=== PATIENT | male | born 1965 | race Caucasian/White ===

== ENCOUNTER 2021-03-12 07:06 | Outpatient (CLI) | payer BC, SELFPAY ==
--- NOTE | 2021-03-12 07:14 | CT_ITS ---
WS: [id number] CT PARANASAL SINUSES HISTORY: ALLERGIC rhinitis, CHRONIC SINUSITIS TECHNIQUE: Contiguous 2.5 mm axial images obtained through the sinuses. Images are reconstructed in s agittal and coronal planes. All CT scans at [facility] use at least one of these dose opt imization techniques: automated exposure control; mA and/or kV adjustment per patient size (includes targeted exams where dose is matched to clinical indication); or iterative reconstruction. DLP: 562.34 mGy.cm COMPARISON: 05/07/2019 Frontal sinuses: Clear. Sphenoid sinus: Clear. Ethmoid sinuses: Clear. Maxillary sinus: Clear. Previously described opacification in the RIGHT maxillary sinus is no longer present. There is mild dehiscence involving the lateral wall the LEFT maxillary sinus. This was also present on the prior study. There is very slight medial displacement of the fat within the masseter s pace into the sinus but unchanged. No acute inflammation. Ostiomeatal unit: Very small amount of increased mucoperiosteal thickening in the RIGHT ostiomeatal u nit. Near complete obstruction. LEFT ostiomeatal unit is clear. Orbits and globes are normal. CT/CT sinus wo con* [id number] IMPRESSION: 1. Resolved RIGHT maxillary sinus opacification since 05/07/2019. 2. There is no evidence for sinusitis or polyposis. 3. Mild mucoperiosteal thickening at the RIGHT ostiomeatal unit but no obstruc tion.
== END 2021-03-12 07:07 | disposition home or self-care (01) ==
PROVIDERS: PCP Electrodiagnostic Medicine; Visit Provider Electrodiagnostic Medicine
DX: J30.9 Allergic rhinitis, unspecified (principal); J32.9 Chronic sinusitis, unspecified
CPT/HCPCS: 70486

== ENCOUNTER 2022-12-28 09:30 | Oncology outpatient (recurring) (ONCR) | payer OTHER, SELFPAY ==
[2022-12-28 10:54] LABS: Basophils # 0.1 10^3/uL (0.0-0.1); Basophils % 0.9 %; Eosinophils # 0.4 10^3/uL (0.0-0.8); Eosinophils % 4.7 %; Hematocrit 51.9 % (42.0-52.0); Hemoglobin 17.4 g/dL (11.7-16.6); Lymphocytes # 2.4 10^3/uL (0.8-4.8); Mean Corpuscular HGB Conc 33.5 g/dL (30.0-36.0); Mean Corpuscular Hemoglobin 30.9 pg (28.0-34.0); Mean Platelet Volume 10.2 fL (7.4-10.4); Monocytes # 0.7 10^3/uL (0.2-0.9); Monocytes % 9.2 %; Neutrophils # 3.95 10^3/uL (1.8-7.7); Neutrophils % 53.1 %; Nucleated Red Blood Cells % 0 %; Platelet Count 244 10^3/cmm (130-400); Red Blood Count 5.64 10^6/uL (4.1-5.3); Red Cell Distribution Width 13.2 % (12.1-15.1); White Blood Count 7.5 10^3/uL (4.0-10.0)
[2022-12-28 11:01] LABS: Erythrocyte Sedimentation Rate 7 mm/hr (0-10)
[2022-12-28 11:26] LABS: LAB Peripheral Smear Sent for Review
[2022-12-28 11:36] LABS: Alanine Aminotransferase 19 U/L (0-41); Albumin Level 4.7 g/dL (3.5-5.2); Alkaline Phosphatase 58 U/L (40-130); Anion Gap 13.8 (5-19); Aspartate Amino Transferase 17 U/L (0-40); Blood Urea Nitrogen 14 mg/dL (6-20); Calcium 9.5 mg/dL (8.5-10.5); Carbon Dioxide 24 mmol/L (22-29); Chloride 105 mmol/L (98-107); Ferritin 200 ng/mL (30-400); Globulin 3.3 g/dL (1.3-4.6); Glucose 94 mg/dL (65-115); Iron 133 ug/dL (59-158); Lactate Dehydrogenase 135 U/L (135-225); Magnesium 1.9 mg/dL (1.7-2.3); Osmolality Calculated 288 mOsm/kg (285-295); Percent Saturation 45.7 % (20-50); Potassium 3.8 mmol/L (3.5-5.1); Sodium 139 mmol/L (136-145); Thyroid Stimulating Hormone 2.43 uIU/mL (0.27-4.20); Total Bilirubin 0.7 mg/dL (0.15-1.2); Total Iron Binding Capacity 291 mcg/dl; Unsaturated Iron Binding 158 ug/dL (112-347); Vitamin B12 466 pg/mL (232-1245)
[2022-12-28 12:04] LABS: Testosterone Total 357.1 ng/dL (193-740)
[2023-01-06 20:24] LABS: CALR Exon 9 Mutation NOT DETECTED (NOT DETECTED); CSF3R Exon 14/17 Mutation NOT DETECTED (NOT DETECTED); JAK2 Exon 12 Mutation NOT DETECTED (NOT DETECTED); JAK2 V617 Block Specimen ID NG; JAK2 V617 Clinical Indication NG; JAK2 V617 Mutation NOT DETECTED (NOT DETECTED); JAK2 V617 Specimen Source NG; MPL Exon 12 Mutation NOT DETECTED (NOT DETECTED)
== END 2023-01-15 23:59 | disposition home or self-care (01) ==
PROVIDERS: PCP Electrodiagnostic Medicine; Visit Provider Internal Medicine Medical Oncology
DX: M25.50 Pain in unspecified joint (principal); D75.1 Secondary polycythemia; R53.83 Other fatigue
CPT/HCPCS: 36415; 80053; 81270; 81279; 81339; 81479; 82607; 82728; 83540; 83550; 83615; 83735; 84403; 84443; 85025; 85651; 86140

== ENCOUNTER 2023-03-01 15:00 | Outpatient (CLI) | payer OTHER, SELFPAY | END 2023-03-01 15:01 | disposition home or self-care (01) | LOC: SLEEP 03-02 16:08 | PROVIDERS: PCP Electrodiagnostic Medicine; Visit Provider Electrodiagnostic Medicine | DX: G47.33 Obstructive sleep apnea (adult) (pediatric) (principal) | CPT/HCPCS: G0399 ==

== ENCOUNTER 2023-04-12 10:57 | Oncology outpatient (recurring) (ONCR) | payer OTHER, SELFPAY ==
[2023-04-12 11:28] VITALS: BP 115/77; PULSE 73; RESP 18; TEMP 36.5; O2SAT 96
[2023-04-12 11:52] LABS: Basophils % 0.6 %; Eosinophils # 0.3 10^3/uL (0.0-0.8); Eosinophils % 5.4 %; Hematocrit 50.5 % (42.0-52.0); Hemoglobin 16.9 g/dL (11.7-16.6); Lymphocytes # 1.2 10^3/uL (0.8-4.8); Lymphocytes % 19.1 %; Mean Corpuscular HGB Conc 33.5 g/dL (30.0-36.0); Mean Corpuscular Hemoglobin 31.4 pg (28.0-34.0); Mean Corpuscular Volume 93.7 fl (80-94); Mean Platelet Volume 10.1 fL (7.4-10.4); Monocytes # 0.3 10^3/uL (0.2-0.9); Monocytes % 5.4 %; Nucleated Red Blood Cells % 0 %; Platelet Count 225 10^3/cmm (130-400); Red Blood Count 5.39 10^6/uL (4.1-5.3); Red Cell Distribution Width 12.9 % (12.1-15.1); White Blood Count 6.2 10^3/uL (4.0-10.0)
[2023-04-12 12:32] LABS: Alanine Aminotransferase 20 U/L (0-41); Albumin Level 4.2 g/dL (3.5-5.2); Alkaline Phosphatase 63 U/L (40-130); Blood Urea Nitrogen 14 mg/dL (6-20); Calcium 8.9 mg/dL (8.5-10.5); Carbon Dioxide 23 mmol/L (22-29); Chloride 101 mmol/L (98-107); Globulin 3.2 g/dL (1.3-4.6); Glomerular Filtration Rate 87.3 mL/min (90-130); Glucose 177 mg/dL (65-115); Osmolality Calculated 283 mOsm/kg (285-295); Sodium 134 mmol/L (136-145); Total Bilirubin 0.8 mg/dL (0.15-1.2); Total Protein 7.4 g/dL (6.6-8.7)
[2023-04-12 12:33] LABS: Anion Gap 14.2 (5-19); Aspartate Amino Transferase 20 U/L (0-40); Potassium 4.2 mmol/L (3.5-5.1)
== END 2023-04-17 23:59 | disposition home or self-care (01) ==
PROVIDERS: Nurse Practitioner Family; PCP Electrodiagnostic Medicine; Visit Provider Internal Medicine Medical Oncology
DX: D75.1 Secondary polycythemia (principal)
CPT/HCPCS: 36415; 80053; 85025

== ENCOUNTER 2023-04-18 06:10 | Outpatient (CLI) | payer OTHER, SELFPAY ==
--- NOTE | 2023-04-18 06:30 | CT_ITS ---
WS: [id number] CT SINUSES TECHNIQUE: Noncontrast CT of the paranasal sinuses with coronal and sagittal reformatted images. CLINICAL INFORMATION: sinusitis COMPARISON: March 12, 2021 DLP: 373.[address] scans at [facility] use at least one of these dose optimization techniques: automated e xposure control; mA and/or kV adjustment per patient size (includes targeted exams where dose is matc hed to clinical indication); or iterative reconstruction. FINDINGS: Mild S-shaped nasal septal deviation measuring 2-3 mm. Ostiomeatal units are patent. Mild narrowing o f the ostiomeatal units bilaterally. Paranasal sinuses are well aerated. Mastoid air cells well aerat ed. Normal posterior nasopharynx. Normal parapharyngeal fat. Septation RIGHT frontal sinus. Frontal s inuses and frontal ethmoidal recesses are well aerated. Mild mucosal thickening in the ethmoid air ce lls. Sphenoid sinuses are well aerated. Maxillary sinuses are well aerated. CT/CT sinus wo con* [id number] IMPRESSION: 1. Mild S-shaped nasal septal deviation. 2. Mild mucosal thickening in the ethmoid air cells. Ostiomeatal units are pat ent with mild narrowing. 3. Mastoid air cells well aerated. 4. Paranasal sinuses are well aerated. 5. No acute sinusitis.
== END 2023-04-18 06:11 | disposition home or self-care (01) ==
PROVIDERS: PCP Electrodiagnostic Medicine; Visit Provider Otolaryngology
DX: J32.9 Chronic sinusitis, unspecified (principal); J34.2 Deviated nasal septum
CPT/HCPCS: 70486

== ENCOUNTER 2023-07-18 12:03 | Oncology outpatient (recurring) (ONCR) | payer OTHER, SELFPAY ==
[2023-07-18 12:15] VITALS: BP 129/76; PULSE 72; RESP 16; TEMP 36.6; O2SAT 97
[2023-07-18 12:25] LABS: Basophils # 0.1 10^3/uL (0.0-0.1); Basophils % 0.8 %; Eosinophils # 0.3 10^3/uL (0.0-0.8); Eosinophils % 3.9 %; Hematocrit 46.3 % (37-53); Lymphocytes # 1.7 10^3/uL (0.8-4.8); Lymphocytes % 22.9 %; Mean Corpuscular Volume 93.7 fl (82-101); Mean Platelet Volume 10.4 fL (7.4-10.4); Monocytes # 0.6 10^3/uL (0.2-0.9); Monocytes % 8.6 %; Neutrophils % 63.5 %; Nucleated Red Blood Cells % 0 %; Platelet Count 253 10^3/cmm (157-399); Red Blood Count 4.94 10^6/uL (3.85-5.65); Red Cell Distribution Width 13.1 % (12.1-15.1); White Blood Count 7.24 10^3/uL (3.29-11.43)
[2023-07-18 12:45] LABS: Alanine Aminotransferase 11 U/L (0-41); Albumin Level 4.3 g/dL (3.5-5.2); Alkaline Phosphatase 61 U/L (40-130); Anion Gap 12.6 (5-19); Aspartate Amino Transferase 13 U/L (0-40); Blood Urea Nitrogen 12 mg/dL (6-20); Carbon Dioxide 27 mmol/L (22-29); Chloride 104 mmol/L (98-107); Glucose 113 mg/dL (65-115); Osmolality Calculated 289 mOsm/kg (285-295); Potassium 4.6 mmol/L (3.5-5.1); Sodium 139 mmol/L (136-145); Total Bilirubin 0.7 mg/dL (0.15-1.2); Total Protein 7.3 g/dL (6.6-8.7)
== END 2023-07-18 23:59 | disposition home or self-care (01) ==
LOC: ONCMED 12:04
PROVIDERS: Nurse Practitioner Family; PCP Electrodiagnostic Medicine; Visit Provider Internal Medicine Medical Oncology
DX: D75.1 Secondary polycythemia (principal); R77.8 Other specified abnormalities of plasma proteins; Z79.899 Other long term (current) drug therapy
CPT/HCPCS: 36415; 80053; 85025

== ENCOUNTER 2023-08-31 18:39 | Emergency (ER) | payer OTHER, SELFPAY ==
[2023-08-31 18:44] VITALS: BP 139/94; PULSE 134; RESP 22; TEMP 39.6; O2SAT 94; BMI 30.1
[2023-08-31 19:00] VITALS: O2SAT 92
--- NOTE | 2023-08-31 19:13 | XRR_ITS ---
PROCEDURE INFORMATION: Exam: XR Chest Exam date and time: 08/31/2023 7:32 PM Age: 58 years old Clinical indication: Fever TECHNIQUE: Imaging protocol: Radiologic exam of the chest. Views: 1 view. COMPARISON: No relevant prior studies available. FINDINGS: Lungs: Unremarkable. No consolidation. Pleural spaces: Unremarkable. No pleural effusion. No pneumothorax. Heart/Mediastinum: Unremarkable. No cardiomegaly. Bones/joints: Unremarkable. XR/XR chest 1V portable [id number] IMPRESSION: No acute findings.
--- NOTE | 2023-08-31 19:15 | ED_ITS ---
HPI - COVID 2 General: Chief Complaint: COVID symptoms Stated Complaint: Weakness Time Seen by Provider: 08/31/23 19:05 History of Present Illness: Patient presents to the ER with complaints of fever shortness of breath starting about 5 PM this afternoon. Patient also reports body aches chills nasal congestion sinus pressure for over a week. Patient states last week he was tested negative for COVID and flu but then symptoms improved and they returned today. Patient presents to the ER with pulse of 134 beats a minute respirations of 22 and a temperature of 103.3. O2 sat of 94% on room air. COVID Results: 2 SARS-CoV-2 (PCR) Not detected (NOT DETECT) 08/31/23 19:29 Coronavirus Type 229E (PCR) Not detected (NOT DETECT) 08/31/23 19:29 Review of Systems 2 General: Reports: 10 or more systems reviewed and unremarkable except in HPI and below PFSH ED 2 PFSH: Medical History Testicle lump Anxiety and depression History of nephrolithiasis Androgen deficiency Obstructive sleep apnea Hypertension Ulcerative colitis Surgical History History of carpal tunnel release of both wrists History of total colectomy Family History Mother Cancer breast Father Cancer Prostate Other Anesthesia complication Diabetes Hyperlipidemia Hypertension Denies family history of CAD (coronary artery disease) Clotting disorder Dementia Psychiatric illness Chronic kidney disease (CKD) Suicide Bleeding disorder Lung disease Stroke Social History Smoking and tobacco/nicotine status: former use of tobacco/nicotine Quit status (tobacco/nicotine): has quit using Year quit tobacco: 2016 Former quit date comment: smoked x 15 years Alcohol intake: current Physical Exam 2 Const: COMMON NORMALS: no acute distress, average body habitus, patient oriented x3, no limitations, healthy appearing, alert and well nourished HENMT: COMMON NORMALS: normocephalic, atraumatic, hearing grossly normal bilaterally, external ears normal, Normal external nose present, moist oral mucous membranes and oropharynx normal HEAD & SCALP: normocephalic and atraumatic NOSE: Normal external nose present EXTERNAL EAR: Yes external ears normal Neck/C-Spine: COMMON NORMALS: full ROM, no lymphadenopathy, supple, no meningeal signs, no JVD and Thyroid normal THYROID: Thyroid normal Chest: COMMONS NORMALS: normal inspection of the chest and normal palpation of entire chest wall Resp: COMMON NORMALS: normal respiratory effort, No retractions, No use of accessory muscles and clear to auscultation bilaterally AUSCULTATION: clear to auscultation bilaterally Cardio: COMMON NORMALS: no JVD, regular rhythm, S1 normal heart sound present, S2 normal heart sound present, No gallops present (Cardio), No clicks present (Cardio), No murmurs present (Cardio) and No rub (Cardio); negative for regular rate (Tachycardic) RATE: abnormal rate (Tachycardic) RHYTHM: regular rhythm HEART SOUNDS: S1 normal heart sound present and S2 normal heart sound present GI: COMMON NORMALS: Normal to inspection, nondistended, normoactive bowel sounds present, Soft to palpation, non-tender, No hepatosplenomegaly present and no masses PALPATION: Yes Soft to palpation and Yes No hepatosplenomegaly present Neuro: COMMON NORMALS: patient oriented x3 SENSORIUM/ORIENTATION: Yes alert MENINGEAL SIGNS: Yes no meningeal signs Course 2 Vital Signs: Vital signs: Vital Signs Temperature 99.2 F 08/31/23 20:37 Pulse Rate 119 H 08/31/23 20:22 Respiratory Rate 22 H 08/31/23 20:22 Blood Pressure 155/95 08/31/23 20:22 Pulse Oximetry 92 08/31/23 20:22 Oxygen Delivery Me thod Room Air 08/31/23 19:00 [facility] - COVID Medical Decision Making Patient presented with cold and flulike symptoms. Lab work was obtained which was essentially unremarkable except respiratory panel did show positive for rhinovirus. Patient was bolused 2 L normal saline blood cultures were obtained. Patient's heart rate decreased from 1 34-97. Temperature decreased from 103.3- 99.2. Patient be discharged home to follow-up with his PCP on an as-needed basis. Lab Data 08/31/23 19:51 08/31/23 19:51 Radiology Impressions Chest X-Ray 08/31/23 19:13 IMPRESSION: No acute findings. Laboratory Results WBC 9.51 10^3/uL (3.29-11.43) 08/31/23 19:51 RBC 5.65 10^6/uL (3.85-5.65) 08/31/23 19:51 Hgb 17.20 g/dL (11.27-16.99) H 08/31/23 19:51 Hct 51.9 % (37-53) 08/31/23 19:51 MCV 91.9 fl (82-101) 08/31/23 19:51 MCH 30.4 pg (27-33) 08/31/23 19:51 MCHC 33.1 g/dL (30-55) 08/31/23 19:51 RDW 13.2 % (12.1-15.1) 08/31/23 19:51 Plt Count 205 10^3/cmm (157-399) 08/31/23 19:51 MPV 10.1 fL (7.4-10.4) 08/31/23 19:51 Neut % (Auto) 87.7 % 08/31/23 19:51 Lymph % (Auto) 3.7 % 08/31/23 19:51 Bowman % (Auto) 5.9 % 08/31/23 19:51 Eos % (Auto) 1.6 % 08/31/23 19:51 Baso % (Auto) 0.5 % 08/31/23 19:51 Neut # (Auto) 8.34 10^3/uL (1.8-7.7) H 08/31/23 19:51 Lymph # (Auto) 0.4 10^3/uL (0.8-4.8) L 08/31/23 19:51 Bowman # (Auto) 0.6 10^3/uL (0.2-0.9) 08/31/23 19:51 Eos # (Auto) 0.2 10^3/uL (0.0-0.8) 08/31/23 19:51 Baso # (Auto) 0.1 10^3/uL (0.0-0.1) 08/31/23 19:51 Nucleated RBC % (auto) 0 % 08/31/23 19:51 Nucleated RBCs # 0.0 /100WBC 08/31/23 19:51 Sodium 134 mmol/L (136-145) L 08/31/23 19:51 Potassium 4.2 mmol/L (3.5-5.1) 08/31/23 19:51 Chloride 101 mmol/L (98-107) 08/31/23 19:51 Carbon Dioxide 22 mmol/L (22-29) 08/31/23 19:51 Anion Gap 15.2 (5-19) 08/31/23 19:51 BUN 16 mg/dL (6-20) 08/31/23 19:51 Creatinine 1.1 mg/dL (0.7-1.2) 08/31/23 19:51 GFR Calculation 69.0 mL/min (90-130) L 08/31/23 19:51 Glucose 177 mg/dL (65-115) H 08/31/23 19:51 Calculated Osmolality 284 mOsm/kg (285-295) L 08/31/23 19:51 Lactic Acid 1.9 mmol/L (0.5-2.2) 08/31/23 19:51 Calcium 9.4 mg/dL (8.5-10.5) 08/31/23 19:51 Magnesium 1.5 mg/dL (1.7-2.3) L 08/31/23 19:51 Total Bilirubin 0.6 mg/dL (0.15-1.2) 08/31/23 19:51 AST 18 U/L (0-40) 08/31/23 19:51 ALT 18 U/L (0-41) 08/31/23 19:51 Alkaline Phosphatase 68 U/L (40-130) 08/31/23 19:51 Total Protein 7.7 g/dL (6.6-8.7) 08/31/23 19:51 Albumin 4.2 g/dL (3.5-5.2) 08/31/23 19:51 Globulin 3.5 g/dL (1.3-4.6) 08/31/23 19:51 Procalcitonin 0.90 ng/mL (0-0.5) H 08/31/23 19:51 Urine Color Yellow (Yellow) 08/31/23 19:45 Urine Appearance Clear (CLEAR) 08/31/23 19:45 Urine pH 5 (5-7) 08/31/23 19:45 Ur Specific [place] 1.015 (1.005-1.030) 08/31/23 19:45 Urine Protein Neg (Negative) 08/31/23 19:45 Urine Glucose (UA) Norm (Normal) 08/31/23 19:45 Urine Ketones Negative (Negative) 08/31/23 19:45 Urine Blood Neg (Negative) 08/31/23 19:45 Urine Nitrate Negative (Negative) 08/31/23 19:45 Urine Bilirubin Neg (Negative) 08/31/23 19:45 Urine Urobilinogen Norm mg/dL (Negative) 08/31/23 19:45 Ur Leukocyte Esterase Negative (Negative) 08/31/23 19:45 Nasal Influ A H1 2009 PCR Not detected (NOT DETECT) 08/31/23 19:29 Adenovirus (PCR) Not detected (NOT DETECT) 08/31/23 19: C. pneumoniae DNA (PCR) Not detected (NOT DETECT) 08/31/23 19: Coronavirus 229E (PCR) Not detected (NOT DETECT) 08/31/23 19:29 Human Metapneumovir PCR Not detected (NOT DETECT) 08/31/23 19:29 Influenza A (H1) PCR Not detected (NOT DETECT) 08/31/23 19:29 Influenza A (H3) PCR Not detected (NOT DETECT) 08/31/23 19:29 Influenza Type A (PCR) Not detected (NOT DETECT) 08/31/23 19: Influenza Type B (PCR) Not detected (NOT DETECT) 08/31/23 19:29 M. pneumoniae (PCR) Not detected (NOT DETECT) 08/31/23 19:29 Parainfluenza 1 (PCR) Not detected (NOT DETECT) 08/31/23 19:29 Parainfluenza 2 (PCR) Not detected (NOT DETECT) 08/31/23 19:29 Parainfluenza 3 (PCR) Not detected (NOT DETECT) 08/31/23 19:29 Parainfluenza 4 (PCR) Not detected (NOT DETECT) 08/31/23 19:29 RSV Type A (PCR) Not detected (NOT DETECT) 08/31/23 19:29 RSV Type B (PCR) Not detected (NOT DETECT) 08/31/23 19:29 Entero/Rhino (PCR) Detected (NOT DETECT) A 08/31/23 19:29 SARS-CoV-2 (PCR) Not detected (NOT DETECT) 08/31/23 19:29 2 SARS-CoV-2 (PCR) Not detected (NOT DETECT) 08/31/23 19:29 Coronavirus Type 229E (PCR) Not detected (NOT DETECT) 08/31/23 19:29 All radiology interpretation(s) finalized by discharge Discharge Plan Discharge Patient Disposition: Home Clinical Impression: Rhinovirus infection, Fever Condition: Stable Prescriptions: No Action sertraline 100 mg tablet 100 mg PO DAILY fluticasone propionate 50 mcg/actuation spray,suspension 2 spray intranasal DAILY Rx Instructions: administer into each nostril lisinopril 20 mg tablet 20 mg PO DAILY alprazolam 0.5 mg tablet 0.5 mg PO BID PRN OneLAX Daily Fiber 3.4 gram/6 gram powder PO BID loperamide 2 mg capsule 2 mg PO Q6H PRN acetaminophen [Tylenol] 325 mg capsule 325 mg PO QID PRN montelukast 10 mg tablet 10 mg PO DAILY Discharge Orders: Discharge ED (Routine); Ordered 08/31/23 Ordered By: Brigido Little Referrals: Thomas Willard, [Primary Care Provider] - 1 week Patient Instructions: Fever in Adults (ED), Viral Syndrome (ED), Upper Respiratory Infection (DC) Activity Restrictions/Additional Instructions: Test performed in ER came back positive for rhinovirus. Symptomatic treatment is pushing plenty of fluids, taking Tylenol and/or Motrin as needed for fever and getting plenty of rest. Please follow-up with your family practice physician within the next 7 to 10 days for further evaluation and treatment. If your symptoms worsen please return to the ER. Coding Level of Care Code ED [employer]st for Nadine Warner
[2023-08-31] MEDS: acetaminophen 1,000 MG/100 ML PIGGYBACK 400 MG IV (19:35)
[2023-08-31] MEDS: ketorolac 30 mg/mL INJ IVP (19:35)
[2023-08-31 19:58] LABS: Basophils # 0.1 10^3/uL (0.0-0.1); Basophils % 0.5 %; Eosinophils # 0.2 10^3/uL (0.0-0.8); Eosinophils % 1.6 %; Hematocrit 51.9 % (37-53); Lymphocytes # 0.4 10^3/uL (0.8-4.8); Lymphocytes % 3.7 %; Mean Corpuscular HGB Conc 33.1 g/dL (30-55); Mean Corpuscular Hemoglobin 30.4 pg (27-33); Mean Corpuscular Volume 91.9 fl (82-101); Mean Platelet Volume 10.1 fL (7.4-10.4); Monocytes # 0.6 10^3/uL (0.2-0.9); Monocytes % 5.9 %; Neutrophils # 8.34 10^3/uL (1.8-7.7); Neutrophils % 87.7 %; Nucleated Red Blood Cells % 0 %; Platelet Count 205 10^3/cmm (157-399); Red Blood Count 5.65 10^6/uL (3.85-5.65); Red Cell Distribution Width 13.2 % (12.1-15.1); White Blood Count 9.51 10^3/uL (3.29-11.43)
[2023-08-31 20:17] LABS: Alanine Aminotransferase 18 U/L (0-41); Albumin Level 4.2 g/dL (3.5-5.2); Alkaline Phosphatase 68 U/L (40-130); Anion Gap 15.2 (5-19); Aspartate Amino Transferase 18 U/L (0-40); Blood Urea Nitrogen 16 mg/dL (6-20); Calcium 9.4 mg/dL (8.5-10.5); Carbon Dioxide 22 mmol/L (22-29); Chloride 101 mmol/L (98-107); Globulin 3.5 g/dL (1.3-4.6); Glucose 177 mg/dL (65-115); Magnesium 1.5 mg/dL (1.7-2.3); Osmolality Calculated 284 mOsm/kg (285-295); Potassium 4.2 mmol/L (3.5-5.1); Sodium 134 mmol/L (136-145); Total Bilirubin 0.6 mg/dL (0.15-1.2); Total Protein 7.7 g/dL (6.6-8.7)
[2023-08-31 20:18] LABS: Add Urine Microscopic? NO; Charge for UA Resulting for Rev
[2023-08-31 20:19] LABS: Bilirubin Urine Neg (Negative); Blood Urine Neg (Negative); Glucose Urine UA Norm (Normal); Ketones Urine Negative (Negative); Leukocyte Esterase Urine Negative (Negative); Nitrate Urine Negative (Negative); Protein Urine Neg (Negative); Specific Gravity, Urine 1.015 (1.005-1.030); Urine Appearance Clear (CLEAR); Urine Color Yellow (Yellow); Urobilinogen Urine Norm (Negative); pH Urine 5 (5-7)
[2023-08-31 20:22] VITALS: BP 155/95; PULSE 119; RESP 22; O2SAT 92
[2023-08-31 20:37] VITALS: TEMP 37.3
[2023-08-31 21:12] LABS: Lactic Sepsis W/Reflex 1.9 mmol/L (0.5-2.2)
[2023-08-31] MEDS: magnesium sulfate premix 1 GM/100 ML PIGGYBACK IV (21:32)
[2023-08-31] MEDS: sodium chloride 0.9% 1,000 ML 999 ML IV (21:32)
[2023-08-31 21:57] LABS: Adenovirus Not Detected (NOT DETECT); Chlamydia Pneumoniae Not Detected (NOT DETECT); Coronavirus 229E,HKU1,NL63,OC4 Not Detected (NOT DETECT); Human Metapneumovirus Not Detected (NOT DETECT); Human Rhinovirus/Enterovirus Detected (NOT DETECT); Influenza A Not Detected (NOT DETECT); Influenza A H1 Not Detected (NOT DETECT); Influenza A H1-2009 Not Detected (NOT DETECT); Influenza A H3 Not Detected (NOT DETECT); Influenza B Not Detected (NOT DETECT); Mycoplasma Pneumoniae Not Detected (NOT DETECT); Parainfluenza Virus Type 1 Not Detected (NOT DETECT); Parainfluenza Virus Type 2 Not Detected (NOT DETECT); Parainfluenza Virus Type 3 Not Detected (NOT DETECT); Parainfluenza Virus Type 4 Not Detected (NOT DETECT); Respiratory Syncytial Virus A Not Detected (NOT DETECT); Respiratory Syncytial Virus B Not Detected (NOT DETECT); SARS-COV-2 Not Detected (NOT DETECT)
[2023-08-31 22:29] VITALS: BP 141/80; PULSE 97; O2SAT 94
== END 2023-08-31 22:40 | disposition home or self-care (01) ==
PROVIDERS: Emergency Provider Emergency Medicine; PCP Electrodiagnostic Medicine
DX: B34.8 Other viral infections of unspecified site (principal); Z11.52 Encounter for screening for COVID-19; Z87.891 Personal history of nicotine dependence; I10 Essential (primary) hypertension
CPT/HCPCS: 36415; 71045; 80053; 81003; 83605; 83735; 84145; 85025; 87040; 87486; 87581; 87633; 96365; 96367; 96375; 99284; J0131; J1885; J3475; J7030

== ENCOUNTER 2024-05-29 16:32 | Outpatient (CLI) | payer OTHER, SELFPAY ==
[2024-05-29 18:36] LABS: Prostate Specific Antigen 0.601 ng/mL (0-4)
[2024-05-29 21:22] LABS: Testosterone Total 360.2 ng/dL (193-740)
== END 2024-05-29 16:33 | disposition home or self-care (01) ==
LOC: LAB 16:37
PROVIDERS: PCP Electrodiagnostic Medicine; Visit Provider Urology
DX: N45.3 Epididymo-orchitis (principal)
CPT/HCPCS: 36415; 82670; 84153; 84403

== ENCOUNTER 2025-05-29 07:11 | Outpatient (CLI) | payer OTHER, SELFPAY ==
[2025-05-29 08:27] LABS: Prostate Specific Antigen 0.473 ng/mL (0-4)
== END 2025-05-29 07:12 | disposition home or self-care (01) ==
LOC: LAB 07:12
PROVIDERS: PCP Electrodiagnostic Medicine; Visit Provider Urology
DX: E29.1 Testicular hypofunction (principal)
CPT/HCPCS: 36415; 84153; 84270; 84403